=== PATIENT | male | born 1975 | race Caucasian/White ===

== ENCOUNTER → 2021-06-28 09:56 | Outpatient (BNVA) | payer OTHER, SELFPAY | PROVIDERS: PCP Registered Nurse; Visit Provider Registered Nurse | DX: Z00.00 Encounter for general adult medical examination without abnormal findings (principal); R73.03 Prediabetes; Z13.6 Encounter for screening for cardiovascular disorders; Z12.11 Encounter for screening for malignant neoplasm of colon; Z87.898 Personal history of other specified conditions; Z71.3 Dietary counseling and surveillance | CPT/HCPCS: 80053; 80061; 83036; 85025 ==

== ENCOUNTER → 2024-10-06 11:52 | Outpatient (BNVA) | payer BC, SELFPAY | PROVIDERS: PCP Registered Nurse; Visit Provider Registered Nurse | DX: Z13.6 Encounter for screening for cardiovascular disorders (principal); Z12.5 Encounter for screening for malignant neoplasm of prostate; E78.5 Hyperlipidemia, unspecified | CPT/HCPCS: 80053; 80061; 82306; 85025; G0103 ==